=== PATIENT | male | born 1945 | race Caucasian/White ===

== ENCOUNTER 2017-12-01 02:43 | Inpatient (IN) | payer MEDICARE, OTHER ==
[~2017-12-01] VITALS: Ht 190.5 cm; Wt 114.3 kg
[2017-12-01] MEDS ORDERED: ACETAMINOPHEN 325 MG TABLET PO PRN (03:30)
[2017-12-01] MEDS ORDERED: MAGNESIUM HYDROXIDE 30 ML UDC PO PRN (03:30)
[2017-12-01] MEDS ORDERED: clonazePAM 0.5 MG TABLET PO PRN (03:30)
[2017-12-01] MEDS ORDERED: MAG HYDROX/AL HYDROX/SIMETH 30 ML UDC PO PRN (03:30)
[2017-12-01] MEDS ORDERED: TOPI100T PO (06:54)
[2017-12-01 08:00] VITALS: BP 112/56
[2017-12-01] MEDS: NICOTINE PATCH (21MG) 21 MG PATCH.TD24 TD SCH ×2 (08:40→09:00)
[2017-12-01] MEDS: VENLAFAXINE XR 75 MG CAP.SR.24H PO SCH (11:41)
[2017-12-01] MEDS: TOPIRAMATE 100 MG TABLET PO SCH ×2 (11:41→17:05)
[2017-12-01 16:00] VITALS: BP 114/71
[2017-12-01 19:53] VITALS: BP 112/57
[2017-12-01] MEDS: TEMAZEPAM 7.5 MG CAPSULE PO PRN (21:26)
[2017-12-02] MEDS ORDERED: LEVOTHYROXINE SODIUM 25 MCG TABLET PO SCH (07:30)
[2017-12-02 08:00] VITALS: BP 131/62
[2017-12-02] MEDS: VENLAFAXINE XR 75 MG CAP.SR.24H PO SCH (08:28)
[2017-12-02] MEDS: TOPIRAMATE 100 MG TABLET PO SCH ×2 (08:28→16:54)
[2017-12-02] MEDS: NICOTINE PATCH (21MG) 21 MG PATCH.TD24 TD SCH (08:28)
[2017-12-02 16:00] VITALS: BP 103/46
[2017-12-02 19:58] VITALS: BP 120/74
[2017-12-02] MEDS: TEMAZEPAM 7.5 MG CAPSULE PO PRN (21:35)
[2017-12-03] MEDS ORDERED: LEVOTHYROXINE SODIUM 50 MCG TABLET PO SCH (07:30)
[2017-12-03] MEDS ORDERED: LEVOTHYROXINE SODIUM 25 MCG TABLET PO SCH (07:30)
[2017-12-03 08:00] VITALS: BP 100/58
[2017-12-03] MEDS: NICOTINE PATCH (21MG) 21 MG PATCH.TD24 TD SCH (08:12)
[2017-12-03] MEDS: TOPIRAMATE 100 MG TABLET PO SCH ×2 (08:12→17:11)
[2017-12-03] MEDS: VENLAFAXINE XR 75 MG CAP.SR.24H PO SCH (08:12)
[2017-12-03 16:00] VITALS: BP 101/60
[2017-12-03 18:37] LABS: BASOPHILS # (AUTO) 0.1 /CMM (0.0-0.2); BASOPHILS % (AUTO) 1.1 % (0.0-2.0); EOSINOPHILS # (AUTO) 0.3 /CMM (0.0-0.7); EOSINOPHILS % (AUTO) 4.1 % (0.0-6.0); HEMATOCRIT 41 % (39-51); LYMPHOCYTES # (AUTO) 2.3 /CMM (0.8-4.8); LYMPHOCYTES % (AUTO) 29.4 % (20.0-44.0); MEAN CORPUSCULAR HEMOGLOBIN 31 PG (26.0-33.0); MEAN CORPUSCULAR HGB CONC 34 g/dl (31.0-36.0); MEAN CORPUSCULAR VOLUME 91 fL (80-96); MONOCYTES # (AUTO) 0.6 /CMM (0.1-1.30); NEUTROPHILS # (AUTO) 4.4 /CMM (1.8-8.9); NEUTROPHILS % (AUTO) 57.4 % (43.0-81.0); PLATELET COUNT (AUTO) 153 /CMM (150-450); RED BLOOD CELL COUNT(AUTO) 4.51 MIL/uL (4.5-6.0); WHITE BLOOD COUNT (AUTO) 7.8 K/uL (4.3-11.0)
[2017-12-03 18:46] LABS: CALCIUM, SERUM 8.6 mg/dL (8.5-10.1); CARBON DIOXIDE 22 mmol/L (21-32); CHLORIDE 106 mmol/L (98-107); CREATININE 1.2 mg/dL (0.6-1.3); GLUCOSE 143 mg/dL (74-106); SODIUM SERUM 138 mmol/L (136-145); UREA NITROGEN, BLOOD 22 mg/dL (7-18)
[2017-12-03 19:03] LABS: CHOLESTEROL 139 mg/dL (<200); HDL CHOLESTEROL 41 mg/dL (40-60); LDL 92 mg/dL (0-99); THYROID STIMULATING HORMONE 1.805 uIU/mL (0.358-3.74); TRIGLYCERIDES 73 mg/dL (30-150)
[2017-12-03 21:05] VITALS: BP 97/54
[2017-12-03] MEDS: TEMAZEPAM 7.5 MG CAPSULE PO PRN (21:28)
[2017-12-04] MEDS ORDERED: LEVOTHYROXINE SODIUM 25 MCG TABLET PO SCH (07:30)
[2017-12-04] MEDS: VENLAFAXINE XR 75 MG CAP.SR.24H PO SCH (08:14)
[2017-12-04] MEDS: TOPIRAMATE 100 MG TABLET PO SCH ×2 (08:15→18:07)
[2017-12-04] MEDS: NICOTINE PATCH (21MG) 21 MG PATCH.TD24 TD SCH (08:15)
[2017-12-04 20:00] VITALS: BP 115/64
[2017-12-05] MEDS ORDERED: LEVOTHYROXINE SODIUM 88 MCG TABLET PO SCH (07:30)
[2017-12-05 08:00] VITALS: BP 108/69
[2017-12-05] MEDS: VENLAFAXINE XR 75 MG CAP.SR.24H PO SCH (08:47)
[2017-12-05] MEDS: LEVOTHYROXINE SODIUM 50 MCG TABLET PO SCH (08:47)
[2017-12-05] MEDS: TOPIRAMATE 100 MG TABLET PO SCH ×2 (08:47→16:22)
[2017-12-05] MEDS: NICOTINE PATCH (21MG) 21 MG PATCH.TD24 TD SCH (08:47)
[2017-12-05 16:00] VITALS: BP 113/67
[2017-12-05 20:00] VITALS: BP 117/65
[2017-12-06 08:00] VITALS: BP 96/57
[2017-12-06] MEDS: LEVOTHYROXINE SODIUM 50 MCG TABLET PO SCH (08:25)
[2017-12-06] MEDS: TOPIRAMATE 100 MG TABLET PO SCH ×2 (08:25→16:11)
[2017-12-06] MEDS: NICOTINE PATCH (21MG) 21 MG PATCH.TD24 TD SCH (08:26)
[2017-12-06] MEDS ORDERED: VENLAFAXINE XR 75 MG CAP.SR.24H PO SCH (09:00)
[2017-12-06 20:00] VITALS: BP 131/78
[2017-12-07 08:00] VITALS: BP 118/58
[2017-12-07] MEDS: NICOTINE PATCH (21MG) 21 MG PATCH.TD24 TD SCH (09:00)
[2017-12-07] MEDS: LEVOTHYROXINE SODIUM 50 MCG TABLET PO SCH (09:14)
[2017-12-07] MEDS: VENLAFAXINE XR 75 MG CAP.SR.24H PO SCH (09:14)
[2017-12-07] MEDS: TOPIRAMATE 100 MG TABLET PO SCH ×2 (09:14→17:03)
[2017-12-07 16:00] VITALS: BP 99/58
[2017-12-07 20:00] VITALS: BP 103/64
[2017-12-07] MEDS: TEMAZEPAM 7.5 MG CAPSULE PO PRN (22:00)
[2017-12-08] MEDS: NICOTINE PATCH (21MG) 21 MG PATCH.TD24 TD SCH (08:13)
[2017-12-08] MEDS: LEVOTHYROXINE SODIUM 50 MCG TABLET PO SCH (08:14)
[2017-12-08] MEDS: TOPIRAMATE 100 MG TABLET PO SCH ×2 (08:14→16:45)
[2017-12-08] MEDS: VENLAFAXINE XR 75 MG CAP.SR.24H PO SCH (08:14)
[2017-12-08 08:42] VITALS: BP 101/72
[2017-12-08 16:14] VITALS: BP 121/78
[2017-12-08 19:57] VITALS: BP 102/58
[2017-12-09] MEDS: NICOTINE PATCH (21MG) 21 MG PATCH.TD24 TD SCH (08:42)
[2017-12-09] MEDS: VENLAFAXINE XR 75 MG CAP.SR.24H PO SCH (08:43)
[2017-12-09] MEDS: TOPIRAMATE 100 MG TABLET PO SCH ×2 (08:43→16:50)
[2017-12-09] MEDS: LEVOTHYROXINE SODIUM 50 MCG TABLET PO SCH (08:43)
[2017-12-09 16:00] VITALS: BP 101/66
[2017-12-09 19:50] VITALS: BP 112/76
[2017-12-09] MEDS: TEMAZEPAM 7.5 MG CAPSULE PO PRN (21:06)
[2017-12-10] MEDS: VENLAFAXINE XR 75 MG CAP.SR.24H PO SCH (08:21)
[2017-12-10] MEDS: TOPIRAMATE 100 MG TABLET PO SCH ×2 (08:21→16:36)
[2017-12-10] MEDS: LEVOTHYROXINE SODIUM 50 MCG TABLET PO SCH (08:22)
[2017-12-10] MEDS: NICOTINE PATCH (21MG) 21 MG PATCH.TD24 TD SCH (08:24)
[2017-12-10 16:13] VITALS: BP 99/56
[2017-12-10] MEDS: TEMAZEPAM 7.5 MG CAPSULE PO PRN (19:54)
[2017-12-10 20:17] VITALS: BP 98/65
[2017-12-11 08:00] VITALS: BP 109/74
[2017-12-11] MEDS: VENLAFAXINE XR 75 MG CAP.SR.24H PO SCH (08:46)
[2017-12-11] MEDS: TOPIRAMATE 100 MG TABLET PO SCH ×2 (08:46→17:13)
[2017-12-11] MEDS: LEVOTHYROXINE SODIUM 50 MCG TABLET PO SCH (08:47)
[2017-12-11] MEDS: NICOTINE PATCH (21MG) 21 MG PATCH.TD24 TD SCH (08:48)
[2017-12-11] MEDS: TEMAZEPAM 7.5 MG CAPSULE PO PRN (21:55)
[2017-12-12 08:00] VITALS: BP 101/55
[2017-12-12] MEDS: VENLAFAXINE XR 75 MG CAP.SR.24H PO SCH (08:05)
[2017-12-12] MEDS: LEVOTHYROXINE SODIUM 50 MCG TABLET PO SCH (08:05)
[2017-12-12] MEDS: TOPIRAMATE 100 MG TABLET PO SCH ×2 (08:05→16:47)
[2017-12-12] MEDS: NICOTINE PATCH (21MG) 21 MG PATCH.TD24 TD SCH (08:09)
[2017-12-12 16:00] VITALS: BP 119/60
[2017-12-12] MEDS ORDERED: ARIPIPRAZOLE 5 MG TABLET PO SCH (22:00)
[2017-12-13 08:00] VITALS: BP 120/66
[2017-12-13] MEDS: LEVOTHYROXINE SODIUM 50 MCG TABLET PO SCH (08:37)
[2017-12-13] MEDS: VENLAFAXINE XR 75 MG CAP.SR.24H PO SCH (08:37)
[2017-12-13] MEDS: TOPIRAMATE 100 MG TABLET PO SCH ×2 (08:40→16:09)
[2017-12-13] MEDS: NICOTINE PATCH (21MG) 21 MG PATCH.TD24 TD SCH (08:42)
[2017-12-13 15:25] VITALS: BP 105/57
[2017-12-13 20:00] VITALS: BP 105/58
[2017-12-13] MEDS: ARIPIPRAZOLE 5 MG TABLET PO SCH (21:37)
[2017-12-14 08:00] VITALS: BP 104/69
[2017-12-14] MEDS: NICOTINE PATCH (21MG) 21 MG PATCH.TD24 TD SCH ×2 (09:00→09:25)
[2017-12-14] MEDS: VENLAFAXINE XR 75 MG CAP.SR.24H PO SCH (09:25)
[2017-12-14] MEDS: TOPIRAMATE 100 MG TABLET PO SCH ×2 (09:25→16:32)
[2017-12-14] MEDS: LEVOTHYROXINE SODIUM 50 MCG TABLET PO SCH (09:26)
[2017-12-14 20:00] VITALS: BP 97/51
[2017-12-14] MEDS: TEMAZEPAM 7.5 MG CAPSULE PO PRN (21:04)
[2017-12-14] MEDS: ARIPIPRAZOLE 5 MG TABLET PO SCH (21:04)
[2017-12-15 08:00] VITALS: BP 102/50
[2017-12-15] MEDS: TOPIRAMATE 100 MG TABLET PO SCH ×2 (08:30→16:22)
[2017-12-15] MEDS: VENLAFAXINE XR 75 MG CAP.SR.24H PO SCH (08:30)
[2017-12-15] MEDS: LEVOTHYROXINE SODIUM 50 MCG TABLET PO SCH (08:30)
[2017-12-15] MEDS: NICOTINE PATCH (21MG) 21 MG PATCH.TD24 TD SCH (08:32)
[2017-12-15 16:00] VITALS: BP 119/60
[2017-12-15 20:11] VITALS: BP 109/76
[2017-12-15] MEDS: ARIPIPRAZOLE 5 MG TABLET PO SCH (21:29)
[2017-12-15] MEDS: TEMAZEPAM 7.5 MG CAPSULE PO PRN (22:36)
[2017-12-16 08:00] VITALS: BP 160/100
[2017-12-16] MEDS: LEVOTHYROXINE SODIUM 50 MCG TABLET PO SCH (08:30)
[2017-12-16] MEDS: TOPIRAMATE 100 MG TABLET PO SCH (08:31)
[2017-12-16] MEDS: NICOTINE PATCH (21MG) 21 MG PATCH.TD24 TD SCH (08:31)
[2017-12-16] MEDS: VENLAFAXINE XR 75 MG CAP.SR.24H PO SCH (09:59)
== END 2017-12-16 15:10 | disposition home or self-care (01) | DRG 885 ==
LOC: GPS 02:43
PROVIDERS: ADMIT Psychiatry & Neurology Psychiatry; ATTEND Nurse Practitioner Acute Care
DX: F31.30 Bipolar disorder, current episode depressed, mild or moderate severity, unspecified (principal); N17.0 Acute kidney failure with tubular necrosis; R45.851 Suicidal ideations; E03.9 Hypothyroidism, unspecified; F17.210 Nicotine dependence, cigarettes, uncomplicated
CPT/HCPCS: 36415; 80048-TC; 80061-TC; 84443-TC; 85025-TC; 87081-TC